=== PATIENT | male | born 1995 | race Caucasian/White ===

== ENCOUNTER 2016-12-24 14:24 | Emergency (ER) | payer OTHER | END 2016-12-24 15:41 | disposition home or self-care (01) | LOC: ER 14:24 | DX: J20.9 Acute bronchitis, unspecified (principal); R05 Cough | CPT/HCPCS: 87070; 87400; 87880; 99283 ==

== ENCOUNTER 2017-04-04 15:18 | Emergency (ER) | payer OTHER | END 2017-04-04 15:50 | disposition home or self-care (01) | LOC: ER 15:18 | DX: K59.00 Constipation, unspecified (principal); F84.0 Autistic disorder; F31.9 Bipolar disorder, unspecified; F63.81 Intermittent explosive disorder; Z79.899 Other long term (current) drug therapy | CPT/HCPCS: 99282 ==